=== PATIENT | female | born 1985 | race Caucasian/White ===

== ENCOUNTER 2021-01-30 12:14 | Emergency (ER) | payer OTHER ==
[~2021-01-30] VITALS: Ht 167.6 cm; Wt 50.0 kg
--- NOTE | 2021-01-30 12:36 | NUR ---
Anitha meade in [facility] - 01/30/21 at 1240 by KB fish filleter: pt from lobby to room 33
--- NOTE | 2021-01-30 12:36 | NUR ---
shank faker: pt from lobby to room 11
--- NOTE | 2021-01-30 13:00 | NUR ---
late entry d/t patient care: pt presents to ED with c/o bilateral lower abd pain and pinworms visualized in stool x 1 month. pt denies vomiting/diarrhea. pt had been treated in [place] at onset of symptoms without improvement. pt is a&o, resps even and unlabored, nadn. family at bedside. call light in reach.
[2021-01-30 14:21] VITALS: BP 150/108
--- NOTE | 2021-01-30 14:34 | NUR ---
late entry d/t patient care: pt given d/c instructions and script, educated regarding rx for albendazole. pt is a&o, resps even and unlabored, nadn. pt ambulatory to dc desk with steady gait, accompanied by family.
== END 2021-01-30 14:34 | disposition home or self-care (01) ==
LOC: ED 14:06
DX: B80 Enterobiasis (principal); R11.0 Nausea; R10.31 Right lower quadrant pain
CPT/HCPCS: 99283